=== PATIENT | male | born 1960 | race Caucasian/White ===

== ENCOUNTER 2024-06-22 11:57 | Emergency (ER) | payer BC, SELFPAY ==
[2024-06-22 11:57] VITALS: BMI 28.8
[2024-06-22 11:58] VITALS: BP 212/114
--- NOTE | 2024-06-22 12:35 | ED.GENMED ---
History of Present Illness
<Ruben Saavedra PA-C - Last Filed: 06/22/24 14:44>
General
Chief Complaint: Abdominal Symptoms
Source: patient
Time Seen by Provider: 06/22/24 12:12
History of Present Illness
History of Present Illness:
63-year-old male with past medical history of atrial fibrillation status post ablation and cardioversion, hypertension, previous bowel resection and appendectomy presenting to the emergency department for evaluation of 2 days of worsening abdominal
pain and distention mainly surrounding the periumbilical region, this morning felt a little lightheaded and as if his blood pressure were elevated. He contacted his GI office and was recommended come to the ER for further evaluation. Patient
denies any fevers, chills, rigors or any other GI related illness. He did not attempt anything for his symptoms prior to arrival. He does report good compliance with all of his medications including his anticoagulant
Past History
<Ruben Saavedra PA-C - Last Filed: 06/22/24 14:44>
Past History
ED Past Medical History: Arrthythmia and HTN
ED Past Surgical History: Appendectomy and Bowel resection
Patient has exhibited threatening behavior?: No
Social History
Tobacco: Non-smoker
Alcohol: Occasional
Drug: None
Personal:
Living: with family
Review of Systems
<Ruben Saavedra PA-C - Last Filed: 06/22/24 14:44>
Review of Systems
All Other Systems: ROS reviewed and negative except as documented in HPI and ROS
Phy Exam
<Ruben Saavedra PA-C - Last Filed: 06/22/24 14:44>
Physical Exam
Physical Exam:
GENERAL: Alert , in no apparent distress but does appear uncomfortable
VITAL SIGNS: Significant hypertension noted
HEAD: Normocephalic atraumatic
EYE: clear conjunctiva b/l
HEAD: NCAT
ENT: o/p clr, mmm.
CARDIAC: Regular rate and rhythm .
LUNGS: Clear breath sounds bilaterally, no acute respiratory distress, no wheezes/rales/rhonchi
ABDOMEN: firm and significantly tender around the periumbilical region, no r/g, no cvat
NEUROLOGICAL: Alert and oriented
SKIN: Warm and dry, skin intact.
MUSCULOSKELETAL: No edema, well perfused.
PSYCH: Normal and appropriate interaction.
Scores
<Ruben Saavedra PA-C - Last Filed: 06/22/24 14:44>
Heart Failure Risk
Heart Failure Risk Score: Not Applicable
Heart Score for Chest Pain Patients
STEMI patient?: Not applicable
Withdrawal Assessment of Alcohol
Withdrawal Assessment Completed?: Not applicable
Course
<Ruben Saavedra PA-C - Last Filed: 06/22/24 14:44>
Orders/Labs/Results
Orders:
Orders
06/22/24 12:34
CT Abd/pelvis W Iv Cont Urgent
Comment:
Reason For Exam: severe periumbilical abd pain, hx resection
0.9% Sodium Chloride 1000 ml [Nss] 1,000 ml IV BOLUS
Morphine Sulfate 4 mg IV NOW STA
06/22/24 12:45
Lactic Acid Q4H
Comment: CANCEL 2nd LACTIC ACID IF 1st LACTIC ACID IS LESS THAN 2
06/22/24 12:46
Complete Blood Count/With Diff Urgent
Comprehensive Metabolic Panel Urgent
Lactic Acid Q4H
Comment: CANCEL 2nd LACTIC ACID IF 1st LACTIC ACID IS LESS THAN 2
Lipase Urgent
PTT Urgent
Prothrombin Time Urgent
Abnormal Lab Results
06/22/24
12:46
WBC 4.0 L 10^3/uL
(4.8-10.8)
RBC 4.13 L 10^6/uL
(4.70-6.10)
Hct 36.6 L %
(39.0-52.0)
MCH 32.0 H pg
(27.0-31.0)
Absolute Lymphs (auto) 0.9 L 10^3/uL
(1.2-3.4)
PT 20.6 H Sec
(11.4-14.6)
APTT 44.0 H Sec
(23.4-35.0)
BUN 24 H mg/dl
(9-20)
Glucose 127 H mg/dl
(70-99)
06/22/24 12:46
06/22/24 12:46
Vital Signs
Initial and Last Documented VS:
Initial Vital Signs
Temp Pulse Resp BP Pulse Ox
98.4 F 92 18 212/114 98
06/22/24 11:58 06/22/24 11:58 06/22/24 11:58 06/22/24 11:58 06/22/24 11:58
Last Documented Vital Signs
Temp Pulse Resp BP Pulse Ox
98.4 F 56 18 172/100 97
06/22/24 11:58 06/22/24 13:00 06/22/24 11:58 06/22/24 14:00 06/22/24 14:00
Dry Transfer Worker consulted with Physician
Dry Transfer Worker consulted with physician?: Yes
Name of Physician Consulted: Miguel
<Cooper Rivera, DO - Last Filed: 06/22/24 13:48>
Orders/Labs/Results
Orders:
Orders
06/22/24 12:34
CT Abd/pelvis W Iv Cont Urgent
Comment:
Reason For Exam: severe periumbilical abd pain, hx resection
0.9% Sodium Chloride 1000 ml [Nss] 1,000 ml IV BOLUS
Morphine Sulfate 4 mg IV NOW STA
06/22/24 12:45
Lactic Acid Q4H
Comment: CANCEL 2nd LACTIC ACID IF 1st LACTIC ACID IS LESS THAN 2
06/22/24 12:46
Complete Blood Count/With Diff Urgent
Comprehensive Metabolic Panel Urgent
Lactic Acid Q4H
Comment: CANCEL 2nd LACTIC ACID IF 1st LACTIC ACID IS LESS THAN 2
Lipase Urgent
PTT Urgent
Prothrombin Time Urgent
Abnormal Lab Results
06/22/24
12:46
WBC 4.0 L 10^3/uL
(4.8-10.8)
RBC 4.13 L 10^6/uL
(4.70-6.10)
Hct 36.6 L %
(39.0-52.0)
MCH 32.0 H pg
(27.0-31.0)
Absolute Lymphs (auto) 0.9 L 10^3/uL
(1.2-3.4)
PT 20.6 H Sec
(11.4-14.6)
APTT 44.0 H Sec
(23.4-35.0)
BUN 24 H mg/dl
(9-20)
Glucose 127 H mg/dl
(70-99)
06/22/24 12:46
06/22/24 12:46
Vital Signs
Initial and Last Documented VS:
Initial Vital Signs
Temp Pulse Resp BP Pulse Ox
98.4 F 92 18 212/114 98
06/22/24 11:58 06/22/24 11:58 06/22/24 11:58 06/22/24 11:58 06/22/24 11:58
Last Documented Vital Signs
Temp Pulse Resp BP Pulse Ox
98.4 F 56 18 172/100 97
06/22/24 11:58 06/22/24 13:00 06/22/24 11:58 06/22/24 14:00 06/22/24 14:00
<Ruben Saavedra PA-C - Last Filed: 06/22/24 14:44>
MDM/Problems Addressed
Differential Diagnosis Includes:
Bowel obstruction, incarcerated versus strangulated hernia, diverticulitis, pancreatitis
MDM/Problems Addressed:
63-year-old male presenting to the emergency department for evaluation of worsening abdominal pain with no other associated symptoms. History of prior appendectomy as well as bowel obstruction status post bowel resection. Patient does have a firm
and somewhat distended abdomen, most of his tenderness is around the periumbilical region. Patient does state he has a known hernia in the past. Given his localized tenderness I do have some concern for a strangulated versus incarcerated hernia.
Stat CT of the abdomen and pelvis ordered. Pain control with morphine. Will monitor patient's blood pressure.
Chronic conditions affecting care: HTN and Previous abdomnial surgery
Acute Exacerbation and/or Progression of Chronic Illness: HTN and Previous abdomnial surgery
<Ruben Saavedra PA-C - Last Filed: 06/22/24 14:44>
*Radiology
Radiology exam reviewed: radiology read reviewed
*Pulse Oximetry
Patient hypoxic: no
*Critical Care Note
Total Time (30-74mins, 75-104mins- exclusive of procedures): Not Applicable
Data Reviewed
Review of Other/Old Records Reveals: Records
<Ruben Saavedra PA-C - Last Filed: 06/22/24 14:44>
Patient Management
Escalation/DeEscalation of care consider admission/obs:
Following the morphine patient noted significantly improved pain. There is still some mild tenderness to the abdomen but overall much improved. CT scan shows a fat-containing umbilical hernia. Given patient's improved symptoms and CT findings I
do think it is reasonable for outpatient follow-up with general surgery. Patient advised to monitor his blood pressure as he may need close follow-up with primary care for this. He is aware of return precautions to the emergency department.
ED Attending Note
<Ruben Saavedra PA-C - Last Filed: 06/22/24 14:44>
-
Portions of this chart may have been created with voice recognition software.� Occasional wrong word or��sound alike� substitutions may have occurred due to the inherent limitations of voice recognition software.
<Cooper Rivera DO - Last Filed: 06/22/24 13:48>
ED Attending Note
Patient seen and examined by attending physician: Yes
I performed the substantive portion of visit, reviewed & personally made and approve the management plan that is documented in note by myself or PAIGE.: Yes
ED Attending Note:
I have seen and evaluated the patient with a [id number] encounter. I have spoken to the advance practicer provider and involved in the medical history, the physical exam, medical decision making.
Evaluation and management service: agree unless noted differently below.
Results interpretation: agree unless noted differently below.
Focused HPI: 63-year-old male presenting with significant generalized abdominal pain. Patient concerned this is a recurrence of his umbilical hernia
Physical exam: By the time I saw the patient, he already had CT scan and feeling better. He does have a reducible periumbilical hernia that continues to herniate
Medical Decision Making: Patient feeling better and we discussed incarcerated hernia without signs of strangulation. Discussed stool softeners and outpatient follow-up with surgery
Discharge Plan
Departure
Patient Disposition: Home (Routine Discharge)
Date of Disposition: 06/22/24
Time of Disposition: 13:56
Patient with high blood pressure during this ER visit?: Yes
Discharge Problem:
Hernia, umbilical, Hypertension
Instructions: Abdominal wall hernias
Prescriptions:
New
oxycodone-acetaminophen [Percocet] 5-325 mg tablet
1 tab PO Q6HPRN PRN (Reason: pain) Qty: 6 0RF
docusate sodium [Colace] 100 mg capsule
100 mg PO DAILY PRN (Reason: constipation) Qty: 8 0RF
Referrals:
Tiffany Kumar CRNP [Family Provider] -
Tito Crawley MD [Active] - (Surgery)
Interventions
Interventions:
*Risk Screen - Suicide Last Done: 06/22/24 11:58
*General Assessment Last Done: 06/22/24 11:58
*Neglect/Abuse Screening Last Done: 06/22/24 12:51
*ED- Fall Risk Assessment Last Done: 06/22/24 12:51
*ED COVID-19 Vaccine History Last Done: 06/22/24 12:51
*Nursing Disposition Last Done: 06/22/24 14:17
JT-Bczvgz-Ixpyvzdzts Assessment Last Done: 06/22/24 12:51
Discharge Date and Time
Discharge Date/Time: 06/22/24 14:17
Print Language: NAURUAN
[2024-06-22] MEDS: MORPHINE SULFATE 4 MG IV (12:55)
[2024-06-22] MEDS: NSS 1000 IV (12:56)
[2024-06-22 13:00] VITALS: BP 171/99
[2024-06-22 13:12] LABS: % Eosinophils 4.5 % (0-6); % Immature Granulocytes 0.2 % (0-0.5); % Lymphocytes 22.1 % (20.5-51.1); % Monocytes 8.5 % (1.7-9.3); % Neutrophils 63.7 % (42.2-75.2); Absolute Eosinophils 0.2 10^3/uL (0-0.7); Absolute Lymphocytes 0.9 10^3/uL (1.2-3.4); Absolute Monocytes 0.3 10^3/uL (0.1-0.6); Absolute Neutrophils 2.6 10^3/uL (1.4-6.5); Hematocrit 36.6 % (39.0-52.0); Hemoglobin 13.2 g/dL (13.0-18.0); Mean Corp Hgb Conc. 36.1 g/dL (33.0-37.0); Mean Corpuscular Volume 88.6 fL (80.0-94.0); Mean Platelet Volume 9.5 fL (7.4-10.4); Nucleated Red Blood Cells % 0 % (-); Platelet Count 158 10^3/uL (130-400); Red Blood Cell Count 4.13 10^6/uL (4.70-6.10); Red Cell Dist. Width 12.6 % (11.5-14.5)
[2024-06-22 13:20] LABS: INR 1.75; PT 20.6 Sec (11.4-14.6)
[2024-06-22 13:21] LABS: Lactic Acid 0.9 mmol/L (0.7-2.0)
[2024-06-22 13:22] LABS: ALT (SGPT) 15 U/L (0-50); AST (SGOT) 19 U/L (17-59); Albumin 4.2 g/dl (3.5-5.0); Alkaline Phosphatase 47 U/L (38-126); Blood Urea Nitrogen 24 mg/dl (9-20); Calcium 9.9 mg/dl (8.4-10.2); Carbon Dioxide 24 mmol/L (22-30); Chloride 106 mmol/L (98-107); Estimated Creatinine Clearance 88 ml/min; Glucose 127 mg/dl (70-99); Lipase 42 U/L (23-300); Sodium 140 mmol/L (135-145); Total Bilirubin 0.7 mg/dl (0.2-1.3); Total Protein 6.7 g/dl (6.3-8.2); eGFR > 60.00
[2024-06-22 13:24] VITALS: BP 185/108
[2024-06-22 14:00] VITALS: BP 172/100
== END 2024-06-22 14:17 | disposition home or self-care (01) ==
LOC: EMR 11:57
PROVIDERS: Physician Assistant Medical; EMERGENCY PHYSICIAN Student in an Organized Health Care Education/Training Program; FAMILY PHYSICIAN Nurse Practitioner Family
DX: K42.9 Umbilical hernia without obstruction or gangrene (principal); I48.91 Unspecified atrial fibrillation; I10 Essential (primary) hypertension; Z90.49 Acquired absence of other specified parts of digestive tract
CPT/HCPCS: 99284; 74177; 80053; 83605; 83690; 85025; 85610; 85730; Q9967

== ENCOUNTER 2024-06-28 19:58 | Emergency (ER) | payer BC, SELFPAY ==
[2024-06-28 20:04] VITALS: BP 168/98
[2024-06-28 20:28] LABS: % Basophils 1.3 % (0-2); % Eosinophils 4.3 % (0-6); % Immature Granulocytes 0.2 % (0-0.5); % Lymphocytes 27.3 % (20.5-51.1); % Monocytes 9.6 % (1.7-9.3); % Neutrophils 57.3 % (42.2-75.2); Absolute Basophils 0.1 10^3/uL (0-0.2); Absolute Eosinophils 0.2 10^3/uL (0-0.7); Absolute Lymphocytes 1.5 10^3/uL (1.2-3.4); Absolute Monocytes 0.5 10^3/uL (0.1-0.6); Absolute Neutrophils 3.1 10^3/uL (1.4-6.5); Hematocrit 39.7 % (39.0-52.0); Hemoglobin 14.2 g/dL (13.0-18.0); Mean Corp Hgb Conc. 35.8 g/dL (33.0-37.0); Mean Corpuscular Hgb 31.6 pg (27.0-31.0); Mean Corpuscular Volume 88.4 fL (80.0-94.0); Mean Platelet Volume 9.8 fL (7.4-10.4); Nucleated Red Blood Cells % 0 % (-); Platelet Count 172 10^3/uL (130-400); Red Blood Cell Count 4.49 10^6/uL (4.70-6.10); Red Cell Dist. Width 12.7 % (11.5-14.5); White Blood Cell Count 5.3 10^3/uL (4.8-10.8)
[2024-06-28 20:50] LABS: ALT (SGPT) 17 U/L (0-50); AST (SGOT) 22 U/L (17-59); Albumin 4.7 g/dl (3.5-5.0); Alkaline Phosphatase 54 U/L (38-126); Blood Urea Nitrogen 20 mg/dl (9-20); Calcium 9.3 mg/dl (8.4-10.2); Carbon Dioxide 27 mmol/L (22-30); Chloride 104 mmol/L (98-107); Glucose 112 mg/dl (70-99); Potassium 4.1 mmol/L (3.5-5.1); Sodium 139 mmol/L (135-145); Total Bilirubin 0.7 mg/dl (0.2-1.3); eGFR > 60.00
--- NOTE | 2024-06-29 00:02 | ED.GENMED ---
History of Present Illness
General
Chief Complaint: Blood Pressure Problem
Source: patient
Exam Limitations: none
Time Seen by Provider: 06/28/24 23:46
History of Present Illness
History of Present Illness:
63yoM with a history of hypertension and atrial fibrillation presenting with his for evaluation of high blood pressure. Patient was seen in the ED a week ago for an umbilical hernia. His blood pressure was noted to be elevated during his
visit. Patient has been monitoring his blood pressure at home since then and his blood pressure has been persistently elevated. Blood pressures have been ranging in the 190s/100s. Patient reports a throbbing headache for the past 6 days. He had
some right shoulder discomfort earlier today which has resolved. He denies any chest pain, shortness of breath, leg swelling, visual changes. Patient spoke with his slot machine mechanic today and his carvedilol dose was doubled. He follows with
hand router operator of [place] and takes carvedilol, Entresto, and Xarelto for A-fib.
Past History
Past History
ED Past Medical History: Arrthythmia and HTN
ED Past Surgical History: Appendectomy and Bowel resection
Patient has exhibited threatening behavior?: No
Social History
Tobacco: Non-smoker
Alcohol: Occasional
Drug: None
Personal:
Living: with family
Phy Exam
General Physical Exam
General Presentation: well appearing and no apparent distress
General age: appears stated age
General Skin: warm and dry
General Habitus: normal
ENT Exam
ENT Exam: normocephalic
Eye Exam
Eye Exam: PERRL
Cardiovascular Exam
Cardiovascular Exam: regular rate/rhythm, no edema and no murmur
Pulmonary Exam
Pulmonary Exam: lungs clear, no respiratory distress, no rales, no crackles, no rhonchi and no wheezing
Neurological Exam
Neurological Exam: alert
[place] Coma Scale
Eye Opening: Spontaneous
Verbal Response: Oriented
Motor Response: Obeys Commands
GCS Total Score: 15
Skin Exam
Skin Exam: normal color and warm/dry
Psychiatric Exam
Psychiatric Exam: normal mood/affect
Course
Orders/Labs/Results
Orders:
Orders
06/28/24 20:05
Electrocardiogram (*1) Urgent
Reason for Study: Hypertension, Benign
EKG- Treatment ONCE
06/28/24 20:21
Complete Blood Count/With Diff Urgent
Comprehensive Metabolic Panel Urgent
06/29/24 00:01
CT Head W/o Iv Contrast Urgent
Comment:
Reason For Exam: acute headache
Cardiac Monitoring- Treatment ONCE
Dexamethasone Sod Phosphate [Decadron] 10 mg IV NOW STA
Diphenhydramine [Benadryl] 25 mg IV NOW STA
Magnesium Sulfate 2 Gram/50 ml [Magnesium Sulfate] 2 gram in 50 ml IV NOW
Metoclopramide [Reglan] 10 mg IV NOW STA
06/29/24 00:06
Carvedilol [Coreg] 12.5 mg PO NOW STA
06/29/24 01:06
Troponin I Urgent
Abnormal Lab Results
06/28/24
20:21
RBC 4.49 L 10^6/uL
(4.70-6.10)
MCH 31.6 H pg
(27.0-31.0)
Monocytes % 9.6 H %
(1.7-9.3)
Glucose 112 H mg/dl
(70-99)
06/28/24 20:21
06/28/24 20:21
Vital Signs
Initial and Last Documented VS:
Initial Vital Signs
Temp Pulse Resp BP Pulse Ox
98 F 67 16 168/98 95
06/28/24 20:04 06/28/24 20:04 06/28/24 20:04 06/28/24 20:04 06/28/24 20:04
Last Documented Vital Signs
Temp Pulse Resp BP Pulse Ox
98 F 61 15 148/85 96
06/28/24 20:04 06/29/24 02:45 06/29/24 02:45 06/29/24 02:00 06/29/24 02:45
MDM/Problems Addressed
Differential Diagnosis Includes:
63yoM here for high blood pressure. BP elevated x 1 week. C/o throbbing headache. Denies CP/SOB/visual changes. BP 168/98 on arrival. He is well appearing in no distress. Differential diagnosis includes but is not limited to: hypertension,
hypertensive urgency, hypertensive emergency, tension headache
Initial ED plan: Labs and EKG obtained in triage. EKG shows NSR without ischemic changes. Renal function is normal. Will add troponin and CT head. IV migraine cocktail and reassess.
*EKG
Interpreted by ED Provider?: Yes
EKG Intrepretation Date: 06/28/24
Heart Rate: 64
Rate: normal
Rhythm: sinus
Dania: normal axis
Interval: first degree heart block
QRS Pattern: normal QRS
Ischemia: no ischemia
*Critical Care Note
Total Time (30-74mins, 75-104mins- exclusive of procedures): Not Applicable
Update Note
Update Note:
Troponin within normal limits. Preliminary [facility] report for head CT is negative for acute findings. Patient is feeling much better on reassessment an headache is down to a 2/10 in severity. SBP ranging from 140-150 throughout ED course.
No indication for hospitalization. He has been using a forearm cuff at home which may be overestimating his blood pressure. He was advised to continue the carvedilol dose as instructed by his slot machine mechanic. He has an appt scheduled with his
slot machine mechanic next week. ED return precautions reviewed. Patient in agreement with plan and was discharged in stable condition.
ED Attending Note
-
Portions of this chart may have been created with voice recognition software.� Occasional wrong word or��sound alike� substitutions may have occurred due to the inherent limitations of voice recognition software.
Discharge Plan
Departure
Patient Disposition: Home (Routine Discharge)
Date of Disposition: 06/29/24
Time of Disposition: 02:54
Patient with high blood pressure during this ER visit?: Yes
Discharge Problem:
Hypertension, Acute nonintractable headache
Instructions: High Blood Pressure (DC)
Prescriptions:
No Action
oxycodone-acetaminophen [Percocet] 5-325 mg tablet
1 tab PO Q6HPRN PRN (Reason: pain) Qty: 6 0RF
docusate sodium [Colace] 100 mg capsule
100 mg PO DAILY PRN (Reason: constipation) Qty: 8 0RF
Referrals:
Tiffany Kumar CRNP [Family Provider] -
Activity Restrictions/Additional Instructions:
Increase your carvedilol dose as instructed by your slot machine mechanic.
Please follow-up with your family doctor and slot machine mechanic next week for blood pressure recheck. Return to the ER with any new or worsening symptoms including chest pain or vision changes.
Interventions
Interventions:
*Risk Screen - Suicide Last Done: 06/28/24 20:05
*General Assessment Last Done: 06/29/24 00:59
*Neglect/Abuse Screening Last Done: 06/28/24 20:05
*ED- Fall Risk Assessment Last Done: 06/29/24 00:59
*ED COVID-19 Vaccine History Last Done: 06/29/24 00:59
*Nursing Disposition Last Done: 06/29/24 03:15
ED- Cardiac Assessment Last Done: 06/29/24 00:59
ED- Neurological Assessment Last Done: 06/29/24 00:59
ED- Pulmonary Assessment Last Done: 06/29/24 00:59
Discharge Date and Time
Discharge Date/Time: 06/29/24 03:15
Print Language: EMIRATI
[2024-06-29 00:25] VITALS: BP 168/98
[2024-06-29 00:28] VITALS: BMI 30.2
[2024-06-29] MEDS: COREG 12.5 MG PO (00:31)
[2024-06-29] MEDS: BENADRYL 25 MG IV (00:45)
[2024-06-29] MEDS: REGLAN 10 MG IV (00:46)
[2024-06-29 00:51] VITALS: BP 161/98
[2024-06-29] MEDS: MAGNESIUM SULFATE 50 IV (00:52)
[2024-06-29 01:00] VITALS: BP 155/90
[2024-06-29] MEDS: DECADRON 10 MG IV (01:04)
[2024-06-29 01:35] VITALS: BP 147/90
[2024-06-29 01:44] LABS: Troponin I < 0.012 ng/ml
[2024-06-29 02:00] VITALS: BP 148/85
== END 2024-06-29 03:15 | disposition home or self-care (01) ==
LOC: EMR 19:58
PROVIDERS: Physician Assistant; Student in an Organized Health Care Education/Training Program; EMERGENCY PHYSICIAN Emergency Medicine; FAMILY PHYSICIAN Nurse Practitioner Family
DX: I10 Essential (primary) hypertension (principal); R51.9 Headache, unspecified; I48.91 Unspecified atrial fibrillation; Z90.49 Acquired absence of other specified parts of digestive tract
CPT/HCPCS: 96365; 96375; 99284; 70450; 80053; 84484; 85025; 93005

== ENCOUNTER 2024-07-22 06:24 | Day surgery (SDC) | payer BC, SELFPAY ==
[2024-07-22] VITALS (10 sets, daily range): BP systolic 142–169; BP diastolic 80–95; BMI 30.2
[2024-07-22] MEDS: TYLENOL 1000 MG PO (08:50)
[2024-07-22] MEDS: NORMOSOL-R/PLASMALYTE-A 1000 IV (08:50)
[2024-07-22] MEDS: HEPARIN 5000 UNITS SC (09:17)
--- NOTE | 2024-07-22 11:56 | W.IMMPOSTOP ---
Surgical Immed Post Op Note
-
Primary Surgeon: Erin
Assisting: Ed JURADO
Pre-op Diagnosis: Incarcerated ventral incisional hernia
Post-op Diagnosis: Same
Procedure Performed: Robot assisted laparoscopic repair of incarcerated ventral incisional hernia (rTAPP)
Anesthesia Type: GETA + TAP block
Specimen / Cultures: None
Estimated Blood Loss: 10cc
Complications: None immediate
Operative Findings: 3.2 x 1.7cm defect with fatty contents, 13cm x 13cm bard soft mesh
--- NOTE | 2024-07-22 11:58 | OR.RPT ---
Operative Report
Operative Report
Primary Surgeon: Erin
Assisting: Ed JURADO
Pre-op Diagnosis: Incarcerated ventral incisional hernia
Post-op Diagnosis: Same
Procedure Performed: Robot assisted laparoscopic repair of incarcerated ventral incisional hernia (rTAPP)
Anesthesia Type: GETA + TAP block
Specimen / Cultures: None
Estimated Blood Loss: 10cc
Complications: None immediate
Operative Findings: 3.2 x 1.7cm defect with fatty contents, 13cm x 13cm bard soft mesh
Date of surgery: 07/22/24
Indications:� This 63M developed a symptomatic incarcerated ventral incisional hernia. Robot assisted laparoscopic repair was planned.
Description of procedure:� The patient was taken to the operating room and positioned into supine position. The patient�s abdomen was prepped and draped in standard sterile fashion. A time-out was completed verifying correct patient, procedure,
site, positioning, and implants and special equipment prior to beginning this procedure.� A stab incision was made in the left upper quadrant, a Veress needle was inserted and proper position was confirmed by aspiration and saline drop test.
Following this, pneumoperitoneum was created with insufflation of carbon dioxide to 12 mmHg. Then a 8mm robotic trocar was inserted at the left anterior axillary line at the level of the umbilicus. The laparoscope was inserted and no injuries were
identified in the area. Under direct visualization, the initial trocar was exposed and two 8mm trocars were placed a hand's breadth above and below the initial trocar under direct visualization.
Filmy omental adhesions were taken down from the abdominal wall. Attention was turned to the defect. The peritoneum was incised several cm superior to the defect and a peritoneal flap was developed in transverse and caudad directions using blunt and
sharp dissection and judicious electrocautery. The defect measured as above. The defect was closed with 0 PDS stratafix suture. 13cm x 13cm bard soft mesh was passed into the abdomen and centered on the defect and flush against the underside of
the abdominal wall. Mesh was secured in place with 2-0 vicryl sutures at all four corners as well as under the defect. The flaps were closed over the mesh and secured with 2-0 monocryl stratafix suture. Multiple flap rents were closed with 2-0
monocryl straatfix suture. A 14g angiocath was used to decompress the preperitoneal space. The flaps sealed and suctioned nicely up to the abdominal wall. The mesh did not fold nor curl. A transversus abdominis plane block was then performed under
laparoscopic vision with marcaine/decadron.
After ensuring adequate hemostasis, the trocars were removed and the pneumoperitoneum allowed to escape. The trocar incisions were closed at the skin level using 4-0 monocryl and topical skin adhesive. All counts were correct. The patient tolerated
the procedure well and was taken to the postanesthesia care unit in stable condition.
== END 2024-07-22 14:14 | disposition home or self-care (01) ==
LOC: SDS 06:24
PROVIDERS: ATTENDING PHYSICIAN Surgery
DX: K43.0 Incisional hernia with obstruction, without gangrene (principal)
CPT/HCPCS: 49592; C1781